=== PATIENT | male | born 1960 | race Caucasian/White ===

== ENCOUNTER → 2017-09-11 | Outpatient (CLI) | payer OTHER ==
[2017-09-11 07:43] LABS: ABSOLUTE BASOPHILS # (AUTO) 0.1 10^3/uL (0.0-0.2); ABSOLUTE EOSINOPHILS # (AUTO) 0.6 10^3/uL (0.0-0.6); ABSOLUTE LYMPHOCYTES (AUTO) 2.1 10^3/uL (0.5-4.7); ABSOLUTE MONOCYTES (AUTO) 0.6 10^3/uL (0.1-1.4); ABSOLUTE NEUT (AUTO) 4.5 10^3/uL (1.7-8.2); BASOPHILS % (AUTO) 0.9 % (0-2); EOSINOPHILS % (AUTO) 7.6 % (0-6); HEMATOCRIT 44.7 % (37.9-51.0); HEMOGLOBIN 14.7 g/dL (13.5-17.0); LYMPHOCYTES % (AUTO) 26.9 % (13-45); MEAN CORPUSCULAR HEMOGLOBIN 26.8 pg (27.0-33.4); MEAN CORPUSCULAR HGB CONC 32.9 g/dL (32.0-36.0); MEAN CORPUSCULAR VOLUME 81 fl (80-97); MONOCYTES % (AUTO) 7.5 % (3-13); PLATELET COUNT 332 10^3/uL (150-450); RED CELL DISTRIBUTION WIDTH 13.9 % (11.5-14.0); SEGMENTED NEUTROPHILS % (AUTO) 57.1 % (42-78); TOTAL CELLS COUNTED % (AUTO) 100 %; WHITE BLOOD COUNT 7.8 10^3/uL (4.0-10.5)
[2017-09-11 08:04] LABS: ALANINE AMINOTRANSFERASE 26 U/L (21-72); ALBUMIN 4.5 g/dL (3.5-5.0); ALKALINE PHOSPHATASE 63 U/L (38-126); AMYLASE 196 U/L (30-110); ANION GAP 10 (5-19); ASPARTATE AMINO TRANSFERASE 24 U/L (17-59); BILIRUBIN,DIRECT 0.4 mg/dL (0.0-0.4); BILIRUBIN,TOTAL 0.8 mg/dL (0.2-1.3); BLOOD UREA NITROGEN 19 mg/dL (7-20); CALCIUM 9.9 mg/dL (8.4-10.2); CARBON DIOXIDE 30 mmol/L (22-30); CHLORIDE 107 mmol/L (98-107); CHOLESTEROL 205.25 mg/dL (0-200); GLUCOSE 105 mg/dL (75-110); POTASSIUM 4.3 mmol/L (3.6-5.0); TOTAL PROTEIN 7.7 g/dL (6.3-8.2); TRIGLYCERIDES 178 mg/dL (<150)
[2017-09-11 08:15] LABS: DIRECT LDL 116 mg/dL (<100)
[2017-09-11 08:21] LABS: VLDL CHOLESTEROL 35.6 mg/dL (10-31)
== END ==
LOC: CCC 07:15
DX: M75.50 Bursitis of unspecified shoulder (principal)
CPT/HCPCS: 36415; 80053; 80061; 82150; 83036; 84443; 85025

== ENCOUNTER → 2018-02-16 | Outpatient (CLI) | payer OTHER ==
--- NOTE | 2018-02-17 08:24 | RADIOLOGY REPORT (SQ) ---
EXAM DESCRIPTION: HAND LEFT 2 VIEWS COMPLETED DATE/TIME: 02/16/2018 10:46 am REASON FOR STUDY: PAIN IN RIGHT SHOULDER, PAIN IN LEFT HAND,CHRONIC LEFT KNEE PAIN M17.2 BILATERAL POST-TRAUMATIC OSTEOARTHRITIS OF KNEE M25.511 PAIN IN RIGHT SHOULDER M79.642 PAIN IN LEFT HAND COMPARISON: None. EXAM PARAMETERS: NUMBER OF VIEWS: Two view. TECHNIQUE: AP, lateral and oblique radiographic images acquired of the left hand. LIMITATIONS: None. FINDINGS: MINERALIZATION: Normal. BONES: No acute fracture or dislocation. No worrisome bone lesions. No significant osteophytes. JOINTS: No erosions. No moncho-articular osteopenia. No chondrocalcinosis. SOFT TISSUES: No swelling. No calcifications. OTHER: No other significant finding. IMPRESSION: NEGATIVE STUDY OF THE LEFT HAND. NO EXPLANATION FOR PAIN. TECHNICAL DOCUMENTATION: JOB ID: [id number] [employer]- All Rights Reserved Reading location - IP/workstation name: [email or web address]
--- NOTE | 2018-02-17 08:25 | RADIOLOGY REPORT (SQ) ---
EXAM DESCRIPTION: SHOULDER RIGHT 2 OR MORE VIEWS COMPLETED DATE/TIME: 02/16/2018 10:46 am REASON FOR STUDY: PAIN IN RIGHT SHOULDER, PAIN IN LEFT HAND,CHRONIC LEFT KNEE PAIN M17.2 BILATERAL POST-TRAUMATIC OSTEOARTHRITIS OF KNEE M25.511 PAIN IN RIGHT SHOULDER M79.642 PAIN IN LEFT HAND COMPARISON: None. NUMBER OF VIEWS: Three views. TECHNIQUE: Internal rotation, external rotation, and Y view images acquired of the right shoulder. LIMITATIONS: None. FINDINGS: MINERALIZATION: Normal. BONES: No acute fracture or dislocation. No worrisome bone lesions. No significant osteophytes. GLENOHUMERAL JOINT: No significant findings. ACROMIOCLAVICULAR JOINT: No large osteophytes. SOFT TISSUES: No calcifications. VISUALIZED RIBS, SPINE, AND LUNG: No other significant finding. OTHER: No other significant finding. IMPRESSION: NEGATIVE STUDY OF THE RIGHT SHOULDER. NO EXPLANATION FOR PAIN. TECHNICAL DOCUMENTATION: JOB ID: [id number] [employer]- All Rights Reserved Reading location - IP/workstation name: [email or web address]
--- NOTE | 2018-02-17 08:25 | RADIOLOGY REPORT (SQ) ---
EXAM DESCRIPTION: KNEE LEFT 2 VIEWS COMPLETED DATE/TIME: 02/16/2018 10:46 am REASON FOR STUDY: PAIN IN RIGHT SHOULDER, PAIN IN LEFT HAND,CHRONIC LEFT KNEE PAIN M17.2 BILATERAL POST-TRAUMATIC OSTEOARTHRITIS OF KNEE M25.511 PAIN IN RIGHT SHOULDER M79.642 PAIN IN LEFT HAND COMPARISON: None. NUMBER OF VIEWS: Two views. TECHNIQUE: AP and lateral radiographic images acquired of the left knee. LIMITATIONS: None. FINDINGS: MINERALIZATION: Normal. BONES: No acute fracture. Orthopedic hardware proximal tibia. Appears intact. JOINT: No effusion. SOFT TISSUES: No soft tissue swelling. No radio-opaque foreign body. OTHER: No other significant finding. IMPRESSION: Hardware related to repair previous lateral tibial plateau fracture. No acute findings. TECHNICAL DOCUMENTATION: JOB ID: [id number] [employer]- All Rights Reserved Reading location - IP/workstation name: [email or web address]
== END ==
LOC: CCC 10:09
DX: M17.2 Bilateral post-traumatic osteoarthritis of knee (principal); M25.511 Pain in right shoulder; M79.642 Pain in left hand

== ENCOUNTER → 2018-12-20 | Outpatient (CLI) | payer MEDICAID ==
--- NOTE | 2018-12-20 10:14 | RADIOLOGY REPORT (SQ) ---
EXAM DESCRIPTION: KNEE LEFT 2 VIEWS COMPLETED DATE/TIME: 12/20/2018 9:51 am REASON FOR STUDY: PAIN IN UNSPECIFIED KNEE M25.569 PAIN IN UNSPECIFIED KNEE COMPARISON: None. NUMBER OF VIEWS: Two views. TECHNIQUE: AP and lateral radiographic images acquired of the left knee. LIMITATIONS: None. FINDINGS: MINERALIZATION: Normal. BONES: No acute fracture dislocation. Lateral plate and screw fixation hardware along the proximal t ibia. JOINT: No dislocation pre no large effusion. No significant osteophytes. SOFT TISSUES: No soft tissue swelling. No radio-opaque foreign body. OTHER: No other significant finding. IMPRESSION: No evidence of acute bony abnormality of the left knee. Lateral plate and screw fixation hardware along the proximal tibia. TECHNICAL DOCUMENTATION: JOB ID: [id number] [employer]- All Rights Reserved Reading location - IP/workstation name: [email or web address]
== END ==
LOC: OD 09:39
PROVIDERS: ATTEND Family Medicine
DX: M25.562 Pain in left knee (principal)

== ENCOUNTER 2019-04-02 08:51 | Emergency (ER) | payer MEDICAID ==
--- NOTE | 2019-04-02 09:33 | ER Document Report ---
ED Medical Screen (RME) - General Chief Complaint: Ankle Injury Stated Complaint: RIGHT EYE INJURY/LEFT ANKLE PAIN Time Seen by Provider: 04/02/19 09:24 Primary Care Provider: NANCIE BERMAN MD [Primary Care Provider] - Follow up as needed Mode of Arrival: Ambulatory Information source: Patient Notes: Patient states that he was splitting wood last week and a piece of wood shot back hitting the left medial ankle. Patient states he been altering his gait and then fell yesterday reinjuring the left ankle. Patient states when he fell he hit his right eye on the corner of a countertop. Patient has a previous history of globe injury that required banding in a cornea specialist to repair his right eye in the past. I have greeted and performed a rapid initial assessment of this patient. A comprehensive ED assessment and evaluation of the patient, analysis of test results and completion of the medical decision making process will be conducted by additional ED providers. TRAVEL OUTSIDE OF THE [place] IN LAST 30 DAYS: No - Related Data Allergies/Adverse Reactions: No Known Allergies Allergy (Verified 04/02/19 09:24) Past Medical History - Social History Chew tobacco use (# tins/day): No Frequency of alcohol use: None Drug Abuse: None Neurological Medical History: Reports: Hx Migraine Musculoskeltal Medical History: Reports Hx Arthritis, Reports Hx Musculoskeletal Deformity - hip, Reports Hx Musculoskeletal Trauma - tibia left, left thumb Traumatic Medical History: Reports: Hx Fractures Past Surgical History: Reports: Hx Orthopedic Surgery - left knee right thumb - Immunizations Hx Diphtheria, Pertussis, Tetanus Vaccination: No Physical Exam - Vital signs Vitals: Temp Pulse Resp BP Pulse Ox 97.4 F 71 16 134/83 H 100 04/02/19 08:55 04/02/19 08:55 04/02/19 08:55 04/02/19 08:55 04/02/19 08:55 - General General appearance: Alert Notes: Right eye blue in color, opaque with white patches, left ankle tenderness Course - Vital Signs Vital signs: Temp Pulse Resp BP Pulse Ox 97.4 F 71 16 134/83 H 100 04/02/19 08:55 04/02/19 08:55 04/02/19 08:55 04/02/19 08:55 04/02/19 08:55 Doctor's Discharge - Discharge Referrals: NANCIE BERMAN MD [Primary Care Provider] - Follow up as needed
--- NOTE | 2019-04-02 10:02 | RADIOLOGY REPORT (SQ) ---
EXAM DESCRIPTION: ANKLE LEFT COMPLETE COMPLETED DATE/TIME: 04/02/2019 9:52 am REASON FOR STUDY: rolled ankle COMPARISON: None. NUMBER OF VIEWS: Three views. TECHNIQUE: AP, lateral, and oblique radiographic images acquired of the left ankle. LIMITATIONS: None. FINDINGS: MINERALIZATION: Normal. BONES: No acute fracture or dislocation. The ankle mortise and talar dome are intact. JOINTS: No effusions. SOFT TISSUES: No soft tissue swelling or radiopaque foreign body. The Achilles tendon silhouette is intact. OTHER: No other finding. IMPRESSION: No acute osseous abnormality of the left ankle. TECHNICAL DOCUMENTATION: JOB ID: [id number] [employer]- All Rights Reserved Reading location - IP/workstation name: [email or web address]
[2019-04-02] MEDS ORDERED: POLYMYXIN B SULFATE/TMP OPH SOLN (10 ML/ER DISP) OD ONE (11:41)
[2019-04-02] MEDS ORDERED: HYDROCODONE/ACETAMINOPHEN 5-325 MG (6 TAB/ER DISP) PO PRN (11:42)
--- NOTE | 2019-04-02 11:43 | ER Document Report ---
ED General - General Chief Complaint: Ankle Injury Stated Complaint: RIGHT EYE INJURY/LEFT ANKLE PAIN Time Seen by Provider: 04/02/19 09:24 Primary Care Provider: NANCIE BERMAN MD [Primary Care Provider] - Follow up as needed Mode of Arrival: Ambulatory TRAVEL OUTSIDE OF THE [place] IN LAST 30 DAYS: No - HPI Notes: Patient is a 58-year-old male who presents emergency department for evaluation. First he states that he was chopping wood the other day, he injured the left medial aspect of his ankle. He states that since then he is been walking funny, it is making his knee hurt. He states he is able to bear weight although it does increase his pain. He denies any foot pain. No break in the skin. No redness. Patient also states that he injured his right eye. He states he was bending over and banged his right on the corner of a counter. He is blind in that eye, following a nail to the eye several years ago. He was seen by ophthalmology, retinal specialist. He no longer follows with anyone. He states he was just concerned because it hurts when he moves his eye in any direction. No nausea or vomiting. - Related Data Allergies/Adverse Reactions: No Known Allergies Allergy (Verified 04/02/19 09:24) Past Medical History - General Information source: Patient - Social History Smoking Status: Former Smoker Chew tobacco use (# tins/day): No Frequency of alcohol use: None Drug Abuse: None Family History: Arthritis, CAD, CVA, DM, Hyperlipidemia, Hypertension, Malignancy. denies: Thyroid Disfunction Patient has suicidal ideation: No Patient has homicidal ideation: No Neurological Medical History: Reports: Hx Migraine Musculoskeletal Medical History: Reports Hx Arthritis, Reports Hx Musculoskeletal Deformity - hip, Reports Hx Musculoskeletal Trauma - tibia left, left thumb Traumatic Medical History: Reports: Hx Fractures Past Surgical History: Reports: Hx Orthopedic Surgery - left knee right thumb - Immunizations Hx Diphtheria, Pertussis, Tetanus Vaccination: No Review of Systems - Review of Systems Constitutional: No symptoms reported EENT: See HPI Cardiovascular: No symptoms reported Respiratory: No symptoms reported Gastrointestinal: No symptoms reported Genitourinary: No symptoms reported Musculoskeletal: See HPI Skin: No symptoms reported Neurological/Psychological: No symptoms reported Physical Exam - Vital signs Vitals: Temp Pulse Resp BP Pulse Ox 97.4 F 71 16 134/83 H 100 04/02/19 08:55 04/02/19 08:55 04/02/19 08:55 04/02/19 08:55 04/02/19 08:55 - Notes Notes: This is a 58-year-old male appears older than his stated age in no distress. Head is normocephalic and atraumatic. Left pupil is round, reactive to light. Examination of the right eye yields significant cloudiness of the cornea, pupil is barely visible. It is irregular. Slit-lamp and dye exam was performed. Negative Mauricio. Corneal abrasion is noted with fluorescein dye on the cornea at approximately 10:00. No other foreign bodies are appreciated. Nares are patent, oral mucosa is moist. Heart is regular rate and rhythm, lungs are clear to auscultation bilaterally. Examination of the left lower extremity yields no obvious deformity. He has a brace in place over his left knee. Full range of motion of the left hip, knee, ankle, toes. Neurovascularly intact. Posterior tibial and dorsalis pedis pulse 2+. Capillary refill is brisk, sensation is intact. Patient has minimal tenderness to palpation over the posterior aspect of the medial malleolus. I do not appreciate any wounds. Course - Re-evaluation Re-evalutation: 04/02/19 11:47 Patient presents to the emergency department for evaluation. Examination of the right eye yields a corneal abrasion without any signs of significant globe injury. The patient is already blind in that eye. I did get and place him on some Polytrim for the abrasion. His left ankle shows no signs of significant infection or fracture on x-ray. He is told to take [id number]-[id number] ibuprofen, we will send him home with a small amount of pain medications for his eye pain as well as his ankle contusion. He is to follow-up with primary care and ophthalmology, return to the emergency department for worsening or new concerning symptoms of any sort. - Vital Signs Vital signs: Temp Pulse Resp BP Pulse Ox 97.4 F 71 16 134/83 H 100 04/02/19 08:55 04/02/19 08:55 04/02/19 08:55 04/02/19 08:55 04/02/19 08:55 Discharge - Discharge Clinical Impression: Contusion of left ankle Qualifiers: Encounter type: initial encounter Qualified Code(s): S90.02XA - Contusion of left ankle, initial encounter Injury of conjunctiva and corneal abrasion of right eye w/o FB Qualifiers: Encounter type: initial encounter Qualified Code(s): S05.01XA - Injury of conjunctiva and corneal abrasion without foreign body, right eye, initial encou nter Condition: Stable Disposition: HOME, SELF-CARE Instructions: Corneal Abrasion ([facility]), Ice & Elevation ([facility]) Additional Instructions: Rest and elevate ankle as much as possible. Dmdl-fmn-speiavu ibuprofen as needed for moderate pain, Vicodin as needed for severe pain. Use eyedrops, 1-2 drops in right eye every 4 hours while awake for the next week. 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 Return to the emergency department for worsening or new concerning symptoms of any sort. Referrals: NANCIE BERMAN MD [Primary Care Provider] - Follow up as needed
[2019-04-02 12:23] VITALS: BP 125/77
== END 2019-04-02 12:23 | disposition home or self-care (01) ==
LOC: ER 08:51
DX: S05.01XA Injury of conjunctiva and corneal abrasion without foreign body, right eye, initial encounter (principal); S90.02XA Contusion of left ankle, initial encounter; X58.XXXA Exposure to other specified factors, initial encounter; H54.61 Unqualified visual loss, right eye, normal vision left eye
CPT/HCPCS: 99283; 73610; J3490

== ENCOUNTER → 2020-01-26 | Outpatient (CLI) | payer MEDICAID ==
--- NOTE | 2020-01-26 15:53 | RADIOLOGY REPORT (SQ) ---
EXAM DESCRIPTION: ELBOW LEFT >2 VIEWS IMAGES COMPLETED DATE/TIME: 01/26/2020 3:39 pm REASON FOR STUDY: LT ELBOW PAIN M25.522 PAIN IN LEFT ELBOW COMPARISON: 05/15/2011 NUMBER OF VIEWS: Four views. TECHNIQUE: AP, lateral, and both oblique radiographic images acquired of the left elbow. LIMITATIONS: None. FINDINGS: MINERALIZATION: Normal. BONES: No acute fracture or dislocation. Very small osteophyte olecranon process of the ulna. JOINT: No effusion. SOFT TISSUES: A 2.4 cm soft tissue nodule along the posterior aspect of the olecranon process of the ulna. Considerations for this finding includes possible tophus related to gout, as well as other un derlying pathology. OTHER: No other significant finding. IMPRESSION: 1. A soft tissue nodule along the posterior aspect of the olecranon process of the ulna . Considerations for this finding includes possible tophus related to gout, as well as other underly ing pathology. New finding since the prior study dated 05/15/2011. 2. No acute osseous findings. TECHNICAL DOCUMENTATION: JOB ID: [id number] 2010 [employer]- All Rights Reserved Reading location - IP/workstation name: [email or web address]
== END ==
LOC: OD 15:12
PROVIDERS: ATTEND Family Medicine
DX: M25.522 Pain in left elbow (principal); M25.722 Osteophyte, left elbow

== ENCOUNTER → 2020-02-02 | Outpatient (CLI) | payer MEDICAID ==
--- NOTE | 2020-02-02 12:24 | RADIOLOGY REPORT (SQ) ---
EXAM DESCRIPTION: CT HEAD WITHOUT IMAGES COMPLETED DATE/TIME: 02/02/2020 10:49 am REASON FOR STUDY: (R51.9)HEADACHE, UNSPECIFIED R51.9 HEADACHE, UNSPECIFIED COMPARISON: None. TECHNIQUE: Axial images acquired through the brain without intravenous contrast. Images reviewed wi th bone, brain and subdural windows. Additional sagittal and coronal reconstructions were generated. Images stored on PACS. All CT scanners at this facility use dose modulation, iterative reconstruction, and/or weight based d osing when appropriate to reduce radiation dose to as low as reasonably achievable (ALARA). [facility]: Dose Right [facility]: CareDose [facility]: Dose Right [facility]: Teradose 4D [facility]: [employer] RADIATION DOSE: CT Rad equipment meets quality standard of care and radiation dose reduction techniq ues were employed. CTDIvol: 48.7 mGy. DLP: 858 mGy-cm. mGy. LIMITATIONS: None. FINDINGS: VENTRICLES: Normal size and contour. CEREBRUM: No masses. No hemorrhage. No midline shift. No evidence for acute infarction. Normal gra y/white matter differentiation. No areas of low density in the white matter. CEREBELLUM: No masses. No hemorrhage. No alteration of density. No evidence for acute infarction. EXTRAAXIAL SPACES: No fluid collections. No masses. ORBITS AND GLOBE: No intra- or extraconal masses. Normal contour of globe without masses. CALVARIUM: No fracture. PARANASAL SINUSES: No fluid or mucosal thickening. SOFT TISSUES: No mass or hematoma. OTHER: No other significant finding. IMPRESSION: NORMAL BRAIN CT WITHOUT CONTRAST. EVIDENCE OF ACUTE STROKE: NO. COMMENT: Quality ID # [id number]: Final reports with documentation of one or more dose reduction techniques (e.g., Automated exposure control, adjustment of the mA and/or kV according to patient size, use of iterative reconstruction technique) TECHNICAL DOCUMENTATION: JOB ID: [id number] 2010 [employer]- All Rights Reserved Reading location - IP/workstation name: [email or web address]
== END ==
LOC: RAD 10:33
PROVIDERS: ATTEND Family Medicine
DX: R51.9 Headache, unspecified (principal)
CPT/HCPCS: 70450

== ENCOUNTER → 2020-03-16 | Outpatient (CLI) | payer MEDICAID ==
--- NOTE | 2020-03-16 15:48 | RADIOLOGY REPORT (SQ) ---
EXAM DESCRIPTION: KNEE LEFT 4 VIEW; KNEE RIGHT 4 VIEWS IMAGES COMPLETED DATE/TIME: 03/16/2020 10:27 am REASON FOR STUDY: PAIN IN LEFT KNEE; PAIN IN RIGHT KNEE M25.561 PAIN IN RIGHT KNEE M25.562 PAIN IN LEFT KNEE COMPARISON: None. NUMBER OF VIEWS: 8 views TECHNIQUE: AP, lateral, and both oblique radiographic images acquired of the right and left knee. LIMITATIONS: None. FINDINGS: MINERALIZATION: Normal. BONES: Old fracture left tibial plateau status post plate and screw fixation. No acute fracture or d islocation. No worrisome bone lesions. No significant osteophytes. JOINT: Joint space narrowing medial compartments bilaterally. No effusions or chondrocalcinosis. OTHER: No other significant finding. IMPRESSION: Early osteoarthritic changes. TECHNICAL DOCUMENTATION: JOB ID: [id number] 2010 [employer]- All Rights Reserved Reading location - IP/workstation name: [email or web address]
--- NOTE | 2020-03-16 15:48 | RADIOLOGY REPORT (SQ) ---
EXAM DESCRIPTION: KNEE LEFT 4 VIEW; KNEE RIGHT 4 VIEWS IMAGES COMPLETED DATE/TIME: 03/16/2020 10:27 am REASON FOR STUDY: PAIN IN LEFT KNEE; PAIN IN RIGHT KNEE M25.561 PAIN IN RIGHT KNEE M25.562 PAIN IN LEFT KNEE COMPARISON: None. NUMBER OF VIEWS: 8 views TECHNIQUE: AP, lateral, and both oblique radiographic images acquired of the right and left knee. LIMITATIONS: None. FINDINGS: MINERALIZATION: Normal. BONES: Old fracture left tibial plateau status post plate and screw fixation. No acute fracture or d islocation. No worrisome bone lesions. No significant osteophytes. JOINT: Joint space narrowing medial compartments bilaterally. No effusions or chondrocalcinosis. OTHER: No other significant finding. IMPRESSION: Early osteoarthritic changes. TECHNICAL DOCUMENTATION: JOB ID: [id number] 2010 [employer]- All Rights Reserved Reading location - IP/workstation name: [email or web address]
== END ==
LOC: RAD 09:59
PROVIDERS: ATTEND Physician Assistant
DX: M25.562 Pain in left knee (principal); M25.561 Pain in right knee